=== PATIENT | female | born 1990 | race Caucasian/White ===

== ENCOUNTER 2017-08-08 01:43 | Emergency (ER) | payer BC ==
[2017-08-08] MEDS ORDERED: TORAdol 30 mg Injection IV ONE (01:59)
[2017-08-08] MEDS ORDERED: Sodium Chloride 0.9% 1000 ML 1,000 ML IV STA (01:59)
[2017-08-08] MEDS ORDERED: Zofran 4 MG/2 ML VIAL IV ONE (01:59)
--- NOTE | 2017-08-08 02:06 | ERPHSYRPT ---
- History of Present Illness Time Seen by Provider: 08/08/17 02:01 Historian: patient Exam Limitations: no limitations Physician History: This is a 19-year-old white female with history of bilateral renal micro- calculi which were noted on CT scan May 22, 2017. She arrives with complaint of vomiting, right flank pain radiating to right abdomen. Symptoms since just around midnight. Patient without fever or urinary symptoms no melena or hematochezia. Past medical history includes kidney stones Past surgical history includes colonic polyps Social history patient denies tobacco alcohol or illicit drug use. Timing/Duration: today (symptoms since midnight) Activities at Onset: none Quality: cramping Abdominal Pain Onset Location: RUQ, flank (right flank) Pain Radiation: other (right flank radiating to the right side of the abdomen) Severity of Pain-Max: moderate Severity of Pain-Current: moderate Modifying Factors: Improves With: vomiting. Worsens With: analgesics, antacids , breathing, coughing, defecating, eating, exercise, lying down, movement, palpation, rest, urinating, position, walking Associated Symptoms: back (right flank pain), nausea, vomiting, No chest pain, No diaphoresis, No diarrhea, No fever/chills, No fatigue, No headache, No heartburn, No loss of appetite, No neck pain, No rash, No shortness of breath, No syncope, No weakness Previous symptoms: same symptoms as today (similar symptoms when patient had a CT of the abdomen revealing bilateral micro-calculi on CT May 22, 2017) Allergies/Adverse Reactions: cefuroxime [From Ceftin] Allergy (Verified 08/08/17 04:45) Hives Ephedrine Analogues [Ephedrine Agents] Adverse Reaction (Severe, Verified 04:45) resp distress Hx Influenza Vaccination/Date Given: No Hx Pneumococcal Vaccination/Date Given: No - Review of Systems Constitutional: No Fever, No Chills Eyes: No Symptoms Ears, Nose, & Throat: No Symptoms Respiratory: No Cough, No Dyspnea Cardiac: No Chest Pain, No Edema, No Syncope Abdominal/Gastrointestinal: Abdominal Pain, Nausea, Vomiting, No Diarrhea, No Constipation, No Hematemesis, No Hematochezia, No Melena, No Dysphagia, No Appetite Changes Genitourinary Symptoms: Flank Pain (right flank pain), No Dysuria, No Frequency , No Hematuria, No Hesitancy, No Incontinence, No Urgency, No Urinary Retention , No Menorrhagia, No , No Vaginal Bleeding, No Vaginal Discharge, No Vaginal Itching Musculoskeletal: No Back Pain, No Neck Pain Skin: No Rash Neurological: No Dizziness, No Focal Weakness, No Sensory Changes Psychological: No Symptoms Endocrine: No Symptoms All Other Systems: Reviewed and Negative - Past Medical History Pertinent Past Medical History: Yes Neurological History: No Pertinent History ENT History: No Pertinent History Cardiac History: No Pertinent History Respiratory History: No Pertinent History Endocrine Medical History: No Pertinent History Musculoskeletal History: No Pertinent History GI Medical History: GI Bleed, Polyps History: Other Psycho-Social History: No Pertinent History Female Reproductive Disorders: No Pertinent History Other Medical History: kidney stones - Past Surgical History Past Surgical History: Yes Neuro Surgical History: No Pertinent History Cardiac: No Pertinent History Respiratory: No Pertinent History Gastrointestinal: No Pertinent History Genitourinary: No Pertinent History Musculoskeletal: No Pertinent History Female Surgical History: No Pertinent History Other Surgical History: polyps removed at age 4 - Social History Smoking Status: Former smoker Exposure to second hand smoke: No Drug Use: none - Nursing Vital Signs Nursing Vital Signs: Initial Vital Signs Pulse Rate 79 08/08/17 01:47 Respiratory Rate 24 08/08/17 01:47 Blood Pressure 119/78 08/08/17 01:47 O2 Sat by Pulse Oximetry 100 08/08/17 01:47 Pain Scale Pain Intensity 2 - Physical Exam General Appearance: moderate distress, other (well-developed well-nourished white female , vomiting) Eye Exam: PERRL/EOMI, eyes nml inspection Ears, Nose, Throat Exam: normal ENT inspection, pharynx normal, moist mucous membranes Neck Exam: normal inspection, non-tender, supple, full range of motion Respiratory Exam: normal breath sounds, lungs clear, No respiratory distress Cardiovascular Exam: regular rate/rhythm, normal heart sounds Gastrointestinal/Abdomen Exam: soft, normal bowel sounds, tenderness (Right upper quadrant tenderness), No distention, No mass, No guarding, No ecchymosis, No pulsatile mass, No rebound, No hernia, No hepatomegaly, No organomegaly, No splenomegaly Back Exam: normal range of motion, CVA tenderness (right flank tenderness), No vertebral tenderness, No rash, No decreased range of motion, No muscle spasm, No point tenderness Extremity Exam: normal inspection, normal range of motion, pelvis stable Neurologic Exam: alert, oriented x 3, cooperative, normal mood/affect, nml cerebellar function, sensation nml, No motor deficits Skin Exam: normal color, warm, dry SpO2 Interpretation: normal (98%) - Course Nursing assessment & vital signs reviewed: Yes - CT Exams Abdomen/Pelvis CT Interpretation: Tele-radiologist Report (ct abomen/ pelvis without contrast: Impression: 1. 1. 4mm calculus at the right uretovesicular junction and 6 mm calculus at the right uretopelvic junction causing mild right hydroureteralnephrosis and perinephric stranding. 2. additional bilateral non obstructing renal calculi. trace pelvic ascites,. 4 incidental non-acute findings.) Ordered Tests: Active Orders 24 hr Category Date Time Status IV Insertion STAT Care 08/08/17 01:59 Active ABDOMEN AND PELVIS W/0 CONTRAS [CT] Stat Exams 08/08/17 02:30 Taken AMYLASE Stat Lab 08/08/17 01:55 Completed CBC W DIFF Stat Lab 08/08/17 01:55 Completed CMP Stat Lab 08/08/17 01:55 Completed CULTURE,URINE Stat Lab 08/08/17 01:55 Received HCG QUALITATIVE,SERUM Stat Lab 08/08/17 01:55 Completed LIPASE Stat Lab 08/08/17 01:55 Completed UA W/ MICROSCOPIC Stat Lab 08/08/17 01:55 Completed Medication Summary Discontinued Medications Generic Name Dose Route Start Last Admin Trade Name Freq PRN Reason Stop Dose Admin Ciprofloxacin Confirm 08/08/17 04:35 Cipro 500 Mg Administered 08/08/17 04:36 Dose 500 mg .ROUTE .STK-MED ONE Ciprofloxacin 500 mg 08/08/17 04:46 08/08/17 04:49 Cipro 500 Mg PO 08/08/17 04:47 500 mg STAT ONE Administration Sodium Chloride 1,000 mls @ 999 mls/hr 08/08/17 01:59 08/08/17 02:13 Sodium Chloride 0.9% 1000 Ml IV 08/08/17 02:59 999 mls/hr .Q1H1M STA Administration Sodium Chloride Confirm 08/08/17 02:10 Sodium Chloride 0.9% 1000 Ml Administered 08/08/17 02:11 Dose 1,000 mls @ ud .ROUTE .STK-MED ONE Ketorolac Tromethamine 30 mg 08/08/17 01:59 08/08/17 02:13 Toradol 30 Mg Injection IV 08/08/17 02:00 30 mg STAT ONE Administration Ketorolac Tromethamine Confirm 08/08/17 02:10 Toradol 30 Mg Injection Administered 08/08/17 02:11 Dose 30 mg .ROUTE .STK-MED ONE Morphine Sulfate 4 mg 08/08/17 04:32 08/08/17 04:39 Morphine Sulfate 4 Mg Inj IV 08/08/17 04:33 4 mg STAT ONE Administration Morphine Sulfate Confirm 08/08/17 04:35 Morphine Sulfate 4 Mg Inj Administered 08/08/17 04:36 Dose 4 mg .ROUTE .STK-MED ONE Ondansetron HCl 4 mg 08/08/17 01:59 08/08/17 02:13 Zofran 4 Mg/2 Ml Vial IV 08/08/17 02:00 4 mg STAT ONE Administration Ondansetron HCl Confirm 08/08/17 02:10 Zofran 4 Mg/2 Ml Vial Administered 08/08/17 02:11 Dose 4 mg .ROUTE .STK-MED ONE Potassium Chloride 20 meq 08/08/17 04:57 08/08/17 05:03 Klor Con 10 Meq PO 08/08/17 04:58 20 meq STAT ONE Administration Potassium Chloride Confirm 08/08/17 05:00 Klor Con 10 Meq Administered 08/08/17 05:01 Dose 200 meq PO .STK-MED ONE Promethazine HCl 12.5 mg 08/08/17 04:32 08/08/17 04:39 Phenergan 25 Mg Inj IV 08/08/17 04:33 12.5 mg STAT ONE Administration Promethazine HCl Confirm 08/08/17 04:35 Phenergan 25 Mg Inj Administered 08/08/17 04:36 Dose 25 mg .ROUTE .STK-MED ONE Lab/Rad Data: Laboratory Result Diagrams 08/08/17 01:55 08/08/17 01:55 Laboratory Results 08/08/17 08/08/17 08/08/17 Range/Units 01:55 01:55 01:55 WBC (4.0-10.5) K/mm3 RBC (4.1-5.4) M/mm3 Hgb (12.0-16.0) gm/dl Hct (35-47) % MCV (78-100) fl MCH (26-32) pg MCHC (32-36) g/dl RDW (11.5-14.0) % Plt Count (150-450) K/mm3 MPV (6-9.5) fl Gran % (36.0-66.0) % Lymphocytes % (24.0-44.0) % Monocytes % (0.0-12.0) % Eosinophils % (0.00-5.0) % Basophils % (0.0-0.4) % Basophils # (0-0.4) Sodium 138 (136-145) mEq/L Potassium 3.2 L (3.5-5.1) mEq/L Chloride 101 (98-107) mEq/L Carbon Dioxide 19.5 L (21-32) mEq/L Anion Gap 20.5 H (5-15) MEQ/L BUN 11 (9-20) mg/dL Creatinine 0.94 (0.55-1.30) mg/dl Estimated GFR > 60 ML/MIN Glucose 117 H (70-110) MG/DL Calcium 9.6 (8.5-10.1) mg/dL Total Bilirubin 0.30 (0.2-1.0) mg/dL AST 16 (15-37) U/L ALT 27 (12-78) U/L Alkaline Phosphatase 72 (46-116) U/L Serum Total Protein 8.2 (6.4-8.2) gm/dL Albumin 4.5 (3.4-5.0) g/dL Amylase 64 (25-115) U/L Lipase 122 (73-393) U/L Serum , Qual NEGATIVE (Negative) Ur Collection Type CCMS Urine Color BROWN (YELLOW) Urine Appearance CLOUDY (CLEAR) Urine pH 7.0 (5-6) Ur Specific [place] 1.020 (1.005-1.025) Urine Protein TRACE (Negative) Urine Ketones SMALL (NEGATIVE) Urine Blood 250 (0-5) Cristino/ul Urine Nitrite NEGATIVE (NEGATIVE) Urine Bilirubin NEGATIVE (NEGATIVE) Urine Urobilinogen NORMAL (0-1) mg/dL Ur Leukocyte Esterase 1+ (NEGATIVE) Urine Microscopic RBC >100 (0-2) /HPF Urine Microscopic WBC 10-15 (0-5) /HPF Ur Epithelial Cells RARE (FEW) /HPF Urine Bacteria FEW (NEGATIVE) /HPF Urine Culture Reflexed YES (NO) Urine Glucose NEGATIVE (NEGATIVE) mg/dL Specimen Received 08-08-17 0225 08/08/17 Range/Units 01:55 WBC 10.1 (4.0-10.5) K/mm3 RBC 4.64 (4.1-5.4) M/mm3 Hgb 14.4 (12.0-16.0) gm/dl Hct 40.5 (35-47) % MCV 87.3 (78-100) fl MCH 31.0 (26-32) pg MCHC 35.6 (32-36) g/dl RDW 12.2 (11.5-14.0) % Plt Count 248 (150-450) K/mm3 MPV 9.5 (6-9.5) fl Gran % 75.6 H (36.0-66.0) % Lymphocytes % 19.0 L (24.0-44.0) % Monocytes % 4.7 (0.0-12.0) % Eosinophils % 0.6 (0.00-5.0) % Basophils % 0.1 (0.0-0.4) % Basophils # 0.01 (0-0.4) Sodium (136-145) mEq/L Potassium (3.5-5.1) mEq/L Chloride (98-107) mEq/L Carbon Dioxide (21-32) mEq/L Anion Gap (5-15) MEQ/L BUN (9-20) mg/dL Creatinine (0.55-1.30) mg/dl Estimated GFR ML/MIN Glucose (70-110) MG/DL Calcium (8.5-10.1) mg/dL Total Bilirubin (0.2-1.0) mg/dL AST (15-37) U/L ALT (12-78) U/L Alkaline Phosphatase (46-116) U/L Serum Total Protein (6.4-8.2) gm/dL Albumin (3.4-5.0) g/dL Amylase (25-115) U/L Lipase (73-393) U/L Serum , Qual (Negative) Ur Collection Type Urine Color (YELLOW) Urine Appearance (CLEAR) Urine pH (5-6) Ur Specific [place] (1.005-1.025) Urine Protein (Negative) Urine Ketones (NEGATIVE) Urine Blood (0-5) Cristino/ul Urine Nitrite (NEGATIVE) Urine Bilirubin (NEGATIVE) Urine Urobilinogen (0-1) mg/dL Ur Leukocyte Esterase (NEGATIVE) Urine Microscopic RBC (0-2) /HPF Urine Microscopic WBC (0-5) /HPF Ur Epithelial Cells (FEW) /HPF Urine Bacteria (NEGATIVE) /HPF Urine Culture Reflexed (NO) Urine Glucose (NEGATIVE) mg/dL Specimen Received - Progress Progress: improved Progress Note: 08/08/17 02:06 This is a 27-year-old white female with history of bilateral micro-renal calculi found on CT of the abdomen May 22, 2017. She states that around midnight she began experiencing pain in the right flank radiating to the right abdomen she has had nausea vomiting. She states that she took a home test and states she is not . On arrival patient is vomiting leaning over to the right side. She has tenderness with palpation right upper quadrant right flank. Will give patient IV normal saline IV Toradol IV Zofran and obtain CBC CMP UA. 08/08/17 02:[address] of the abdomen and pelvis dated May 22, 2017 is reviewed. The impression reads bilateral micro-calculi however in reviewing the y the text: patient is noted to have bilateral renal calculi with the largest being 9 mm located in the mid to upper pole of the right kidney. Patient has been given IV normal saline and Toradol as well as Zofran. Will await appropriate laboratory studies. And monitor response to patient's medication. 08/08/17 04:22 Patient is improved after Toradol 30 mg IV normal saline she still has some urgency with urination. CT of the abdomen and pelvis without contrast shows a 4 mm calculus at the right ureteral vesicular junction and 6 mm calculus at the right ureteral pelvic junction causing mild right hydroureteral nephrosis and perinephric stranding there are additional bilateral nonobstructing renal calculi and a trace of pelvic ascites. I had offered to contact [facility] for possible transfer patient stated that she really did not want to be admitted but would rather try to go through the office. She apparently has seen [facility] renal physicians and specifically Dr. Ling in the past. I contacted Dr. yAala through [facility] one call service and discussed the patient's case with him. He felt that the patient would be okay to follow-up in office as long she doesn' t have a fever and was not in severe distress. Will go ahead and place patient on Cipro 250 mg orally twice a day she has [place] at home and does not want anymore Will write for phenergan. She is to drink plenty of fluids strain all her urine contact [facility] renal physicians tomorrow morning specifically Dr. Ling and arrange follow-up. She is to return for acute distress or severe symptoms. 08/08/17 04:36 08/08/17 05:18 Patient is feeling better after recieving 4 mg morphine and 12.5 mg phenergan, wants to go home and follow up with her urologist, Patient given 20 millequivalents of potassium chloride secondary to potassium of 3.2 will discharge. 08/08/17 05:37 - Departure Time of Disposition: 04:24 Departure Disposition: Home Clinical Impression: Right flank pain Urolithiasis Qualifiers: Urinary calculus location: ureter Qualified Code(s): N20.1 - Calculus of ureter Hydronephrosis Qualifiers: Hydronephrosis type: other Qualified Code(s): N13.39 - Other hydronephrosis Abdominal pain Qualifiers: Abdominal location: right upper quadrant Qualified Code(s): R10.11 - Right upper quadrant pain Condition: Fair Critical Care Time: No Referrals: KAELYN JACKSON MD [Primary Care Provider] - Instructions: Kidney Stones (DC) Additional Instructions: Return home. Strain all urine. Cipro 500 mg orally twice a day 7 days #14. Take the [place] you have at home as needed for pain. Phenergan 25 mg orally every 4-6 hours as needed for nausea and vomiting. Contact [facility] renal physicians later this morning and arrange follow-up call this morning. Return for acute distress or for severe symptoms. Prescriptions: Ciprofloxacin [Cipro 500 MG] 500 mg PO BID #14 tablet Promethazine HCl 25 mg [Phenergan 25 mg] 25 mg PO Q4-6HPRN PRN #12 tablet PRN Reason: nausea and vomiting
[2017-08-08] MEDS ORDERED: TORAdol 30 mg Injection ONE (02:10)
[2017-08-08] MEDS ORDERED: Sodium Chloride 0.9% 1000 ML 1,000 ML ONE (02:10)
[2017-08-08] MEDS ORDERED: Zofran 4 MG/2 ML VIAL ONE (02:10)
[2017-08-08 02:12] LABS: BASOPHIL % 0.1 % (0.0-0.4); Basophil (Absolute #) 0.01 (0-0.4); Eosinophil % 0.6 % (0.00-5.0); Eosinophil (Absolute #) 0.06 (0-0.5); Granulocytes % 75.6 % (36.0-66.0); Hematocrit 40.5 % (35-47); Hemoglobin 14.4 gm/dl (12.0-16.0); Lymphocyte (Absolute #) 1.91 (1.0-4.6); Mean Cell Volume 87.3 fl (78-100); Mean Corpuscular Hgb Concent. 35.6 g/dl (32-36); Mean Platelet Volume 9.5 fl (6-9.5); Monocyte (Absolute #) 0.47 (0.0-1.3); Monocytes % 4.7 % (0.0-12.0); Platelet Count 248 K/mm3 (150-450); Red Blood Count 4.64 M/mm3 (4.1-5.4); Red Cell Distribution Width 12.2 % (11.5-14.0); White Blood Count 10.1 K/mm3 (4.0-10.5)
[2017-08-08 02:25] LABS: Appearance CLOUDY (CLEAR); Bilirubin NEGATIVE (NEGATIVE); Blood 250 Ery/ul (0-5); Glucose NEGATIVE (NEGATIVE); Ketones SMALL (NEGATIVE); Leukocyte Esterase 1+ (NEGATIVE); Nitrite NEGATIVE (NEGATIVE); Protein,Urine Dip TRACE (Negative); Urobilinogen NORMAL mg/dL (0-1)
[2017-08-08 02:26] LABS: Bacteria FEW /HPF (NEGATIVE); Epithelial Cells RARE /HPF (FEW)
[2017-08-08 02:33] LABS: ALBUMIN 4.5 g/dL (3.4-5.0); ALKALINE PHOSPHATASE 72 U/L (46-116); AMYLASE 64 U/L (25-115); ANION GAP 20.5 MEQ/L (5-15); BLOOD UREA NITROGEN 11 mg/dL (9-20); CHLORIDE 101 mEq/L (98-107); Calcium 9.6 mg/dL (8.5-10.1); Carbon Dioxide 19.5 mEq/L (21-32); Creatinine 1 0.94 mg/dl (0.55-1.30); EST GLOMERULAR FILTRATION RATE > 60 ML/MIN; Glucose 117 MG/DL (70-110); LIPASE 122 U/L (73-393); Potassium 3.2 mEq/L (3.5-5.1); SGOT/AST 16 U/L (15-37); SGPT/ALT 27 U/L (12-78); SODIUM 138 mEq/L (136-145); Total Protein 8.2 gm/dL (6.4-8.2)
[2017-08-08] MEDS ORDERED: Phenergan 25 MG INJ IV ONE (04:32)
[2017-08-08] MEDS ORDERED: MORPHINE SULFATE 4 MG INJ IV ONE (04:32)
[2017-08-08] MEDS ORDERED: Cipro 500 MG ONE (04:35)
[2017-08-08] MEDS ORDERED: Phenergan 25 MG INJ ONE (04:35)
[2017-08-08] MEDS ORDERED: MORPHINE SULFATE 4 MG INJ ONE (04:35)
[2017-08-08] MEDS ORDERED: Cipro 500 MG PO ONE (04:46)
[2017-08-08] MEDS ORDERED: Klor Con 10 MEQ PO ONE ×2 (04:57→05:00)
[2017-08-08 05:35] VITALS: BP 124/78; PULSE 74; O2SAT 98
--- NOTE | 2017-08-08 09:41 | XRAY ---
Indication: Right flank and right lower quadrant pain. Nausea, vomiting, hematuria, and difficulty urinating. History of stones. Multiple contiguous axial images obtained through the abdomen and pelvis without contrast using renal stone protocol. Comparison: May 22, 2017. Lung bases demonstrate stable right base calcified granuloma. Remaining lung bases clear. Heart is not enlarged. New 9 mm proximal right ureteral and 5 mm distal right UVJ calculi. Right ureter is abnormally distended up to 9 mm along with moderate hydronephrosis consistent with obstructive uropathy. No perinephric fluid. Stable bilateral renal calculi. Noncontrasted stomach and bowel loops appear nonobstructed. Normal appendix. No free fluid/air. Remaining liver, gallbladder, pancreas, spleen, adrenal glands, bladder, uterus, and aorta appear unremarkable for noncontrast exam. Osseous structures intact. Impression: 1. Proximal right ureteral and distal UVJ calculi producing obstructive uropathy as detailed. Stable bilateral renal calculi. 2. Remaining CT abdomen/pelvis without contrast exam is negative. Comment: Preliminary interpretation was made by [facility]. No critical discrepancy. CTDI 18.70
== END 2017-08-08 05:35 | disposition home or self-care (01) ==
LOC: ED 01:43
DX: N20.1 Calculus of ureter (principal); N13.39 Other hydronephrosis
CPT/HCPCS: 36000; 36415; 74176; 80053; 81000; 82150; 83690; 84703; 85025; 87086; 96360; 96374; 96375; 99284; J1885; J2270; J2405; J2550; A9270-GY

== ENCOUNTER 2019-09-22 03:22 | Emergency (ER) | payer BC ==
[2019-09-22 03:29] VITALS: O2SAT 100
[2019-09-22] MEDS ORDERED: Zofran 4 MG/2 ML VIAL IV ONE ×2 (03:46→05:18)
[2019-09-22] MEDS ORDERED: MORPHINE SULFATE 4 MG INJ IV ONE ×2 (03:46→05:38)
[2019-09-22] MEDS ORDERED: Sodium Chloride 0.9% 1000 ML 1,000 ML IV STA ×2 (03:46→05:29)
--- NOTE | 2019-09-22 03:52 | ERPHSYRPT ---
- History of Present Illness Time Seen by Provider: 09/22/19 03:40 Historian: patient Exam Limitations: no limitations Patient Subjective Stated Complaint: pt c/o abd pain radiating to back since 1400 on 09/21/19 Triage Nursing Assessment: pt c/o lower left abd pain, tender on palpation, radiating to lower back area. Hypoactive bs x4 quad. LBM 09/21/19, has nausea , vomiting. Physician History: 29 years old female with history of kidney stones presented in the ER with chief complaint of left flank/left lower quadrant pain since yesterday afternoon moderate to severe, continuous, aggravated with movement and palpation , associated with multiple episodes of nonprojectile, nonbilious vomiting with no hematemesis. She is also complaining of some burning urination. Patient was evaluated by telehealth and was given Cipro but she could not hold anything down because of vomiting. Denies fever or chills. Patient reports similar symptoms multiple times in the past with kidney stones. Timing/Duration: yesterday Activities at Onset: rest Quality: sharpness, stabbing Abdominal Pain Onset Location: LLQ, flank Pain Radiation: no radiation Severity of Pain-Max: severe Severity of Pain-Current: severe Modifying Factors: Improves With: movement, palpation Associated Symptoms: nausea, vomiting Previous symptoms: same symptoms as today Allergies/Adverse Reactions: cefuroxime [From Ceftin] Allergy (Verified 09/22/19 03:37) Hives Ephedrine Analogues [Ephedrine Agents] Adverse Reaction (Severe, Verified 03:37) resp distress Home Medications: Ciprofloxacin [Cipro 500 MG] 500 mg PO BID 09/22/19 [History] ondansetron HCL [Ondansetron HCl] 4 mg PO TID PRN 09/22/19 [History] Hx Tetanus, Diphtheria Vaccination/Date Given: Yes Hx Influenza Vaccination/Date Given: No Hx Pneumococcal Vaccination/Date Given: No Immunizations Up to Date: Yes - Review of Systems Constitutional: No Symptoms Eyes: No Symptoms Ears, Nose, & Throat: No Symptoms Respiratory: No Symptoms Cardiac: No Symptoms Abdominal/Gastrointestinal: Abdominal Pain, Nausea, Vomiting Genitourinary Symptoms: No Symptoms Musculoskeletal: No Symptoms Skin: No Symptoms Neurological: No Symptoms Psychological: No Symptoms Hematologic/Lymphatic: No Symptoms Immunological/Allergic: No Symptoms - Past Medical History Pertinent Past Medical History: Yes Neurological History: No Pertinent History ENT History: No Pertinent History Cardiac History: No Pertinent History Respiratory History: No Pertinent History Endocrine Medical History: No Pertinent History Musculoskeletal History: No Pertinent History GI Medical History: GI Bleed, Polyps History: Other Psycho-Social History: No Pertinent History Female Reproductive Disorders: No Pertinent History Other Medical History: kidney stones, uti - Past Surgical History Past Surgical History: Yes Neuro Surgical History: No Pertinent History Cardiac: No Pertinent History Respiratory: No Pertinent History Gastrointestinal: No Pertinent History Genitourinary: Other Musculoskeletal: No Pertinent History Female Surgical History: No Pertinent History Other Surgical History: polyps removed at age 4, kidney stone removal - Social History Smoking Status: Former smoker Exposure to second hand smoke: Yes Drug Use: none Patient Lives Alone: No - Female History Hx Last Menstrual Period: 08/22/19 Hx Now: No - Nursing Vital Signs Nursing Vital Signs: Initial Vital Signs Temperature 97.9 F 09/22/19 03:28 Pulse Rate 83 09/22/19 03:28 Respiratory Rate 20 09/22/19 03:28 Blood Pressure 110/78 09/22/19 03:28 O2 Sat by Pulse Oximetry 100 09/22/19 03:28 Pain Scale Pain Intensity 7 - Physical Exam General Appearance: no apparent distress Eye Exam: PERRL/EOMI, eyes nml inspection Ears, Nose, Throat Exam: normal ENT inspection Neck Exam: normal inspection Respiratory Exam: normal breath sounds, lungs clear Cardiovascular Exam: regular rate/rhythm, normal heart sounds, normal peripheral pulses Gastrointestinal/Abdomen Exam: soft, tenderness (Left flank/left lower quadrant. ), guarding, No rebound Back Exam: normal inspection Extremity Exam: normal inspection, normal range of motion Neurologic Exam: alert, oriented x 3, cooperative, cardiac nurse specialist II-XII nml as tested Skin Exam: normal color SpO2 Interpretation: normal SpO2: 100 O2 Delivery: Room Air - Course Nursing assessment & vital signs reviewed: Yes Ordered Tests: Active Orders 24 hr Category Date Time Status IV Insertion STAT Care 09/22/19 03:46 Active ABDOMEN AND PELVIS W/0 CONTRAS [CT] Stat Exams 09/22/19 03:47 Taken CBC W DIFF Stat Lab 09/22/19 03:46 Completed CMP Stat Lab 09/22/19 03:46 Completed CULTURE,URINE Stat Lab 09/22/19 04:19 Received HCG,QUALITATIVE URINE Stat Lab 09/22/19 03:48 Completed LIPASE Stat Lab 09/22/19 03:46 Completed UA W/RFX UR CULTURE Stat Lab 09/22/19 04:19 Completed Medication Summary Generic Name Dose Route Start Last Admin Trade Name Trav PRN Reason Stop Dose Admin Sodium Chloride 1,000 mls @ 999 mls/hr 09/22/19 05:29 09/22/19 05:30 Sodium Chloride 0.9% 1000 Ml IV 09/22/19 06:29 999 mls/hr .Q1H1M STA Administration Levofloxacin/Dextrose 750 mg in 150 mls @ 100 mls/hr 09/22/19 05:39 09/22/19 05:59 Levofloxacin 750mg/150ml D5w IV 09/22/19 07:08 100 mls/hr STAT ONE Administration Discontinued Medications Generic Name Dose Route Start Last Admin Trade Name Trav PRN Reason Stop Dose Admin Sodium Chloride 1,000 mls @ 999 mls/hr 09/22/19 03:46 09/22/19 04:07 Sodium Chloride 0.9% 1000 Ml IV 09/22/19 04:46 999 mls/hr .Q1H1M STA Administration Sodium Chloride Confirm 09/22/19 04:03 Sodium Chloride 0.9% 1000 Ml Administered 09/22/19 04:04 Dose 1,000 mls @ ud .ROUTE .STK-MED ONE Sodium Chloride Confirm 09/22/19 05:29 Sodium Chloride 0.9% 1000 Ml Administered 09/22/19 05:30 Dose 1,000 mls @ ud .ROUTE .STK-MED ONE Levofloxacin/Dextrose Confirm 09/22/19 05:57 Levofloxacin 750mg/150ml D5w Administered 09/22/19 05:58 Dose 750 mg in 150 mls @ ud IV .STK-MED ONE Ketorolac Tromethamine 30 mg 09/22/19 05:16 09/22/19 05:21 Toradol 30 Mg Injection IV 09/22/19 05:17 30 mg STAT ONE Administration Ketorolac Tromethamine Confirm 09/22/19 05:14 Toradol 30 Mg Injection Administered 09/22/19 05:15 Dose 30 mg .ROUTE .STK-MED ONE Morphine Sulfate 4 mg 09/22/19 03:46 09/22/19 04:07 Morphine Sulfate 4 Mg Inj IV 09/22/19 03:47 4 mg STAT ONE Administration Morphine Sulfate Confirm 09/22/19 04:03 Morphine Sulfate 4 Mg Inj Administered 09/22/19 04:04 Dose 4 mg .ROUTE .STK-MED ONE Morphine Sulfate Confirm 09/22/19 05:14 Morphine Sulfate 4 Mg Inj Administered 09/22/19 05:15 Dose 4 mg .ROUTE .STK-MED ONE Morphine Sulfate 4 mg 09/22/19 05:38 Morphine Sulfate 4 Mg Inj IV 09/22/19 05:39 STAT ONE Ondansetron HCl 4 mg 09/22/19 03:46 09/22/19 04:07 Zofran 4 Mg/2 Ml Vial IV 09/22/19 03:47 4 mg STAT ONE Administration Ondansetron HCl Confirm 09/22/19 04:03 Zofran 4 Mg/2 Ml Vial Administered 09/22/19 04:04 Dose 4 mg .ROUTE .STK-MED ONE Ondansetron HCl 4 mg 09/22/19 05:18 09/22/19 05:21 Zofran 4 Mg/2 Ml Vial IV 09/22/19 05:19 4 mg STAT ONE Administration Ondansetron HCl Confirm 09/22/19 05:18 Zofran 4 Mg/2 Ml Vial Administered 09/22/19 05:19 Dose 4 mg .ROUTE .STK-MED ONE Lab/Rad Data: Laboratory Result Diagrams 09/22/19 03:46 09/22/19 03:46 Laboratory Results 09/22/19 09/22/19 09/22/19 Range/Units 04:19 03:48 03:46 WBC (4.0-10.5) K/mm3 RBC (4.1-5.4) M/mm3 Hgb (12.0-16.0) gm/dl Hct (35-47) % MCV (78-100) fl MCH (26-32) pg MCHC (32-36) g/dl RDW (11.5-14.0) % Plt Count (150-450) K/mm3 MPV (7.5-11.0) fl Gran % (36.0-66.0) % Eos # (Auto) (0-0.5) Absolute Lymphs (auto) (1.0-4.6) Absolute Monos (auto) (0.0-1.3) Lymphocytes % (24.0-44.0) % Monocytes % (0.0-12.0) % Eosinophils % (0.00-5.0) % Basophils % (0.0-0.4) % Absolute Granulocytes (1.4-6.9) Basophils # (0-0.4) Sodium 138 (137-145) mmol/L Potassium 3.5 (3.5-5.1) mmol/L Chloride 107 (98-107) mmol/L Carbon Dioxide 23 (22-30) mmol/L Anion Gap 11.8 (5-15) MEQ/L BUN 10 (7-17) mg/dL Creatinine 0.78 (0.52-1.04) mg/dL Estimated GFR > 60.0 ML/MIN Glucose 121 H (74-106) mg/dL Calcium 9.5 (8.4-10.2) mg/dL Total Bilirubin 0.80 (0.2-1.3) mg/dL AST 21 (14-36) U/L ALT 14 (0-35) U/L Alkaline Phosphatase 80 (38-126) U/L Serum Total Protein 8.0 (6.3-8.2) g/dL Albumin 4.6 (3.5-5.0) g/dL Lipase 63 (23-300) U/L Urine Color SHITAL (YELLOW) Urine Appearance CLOUDY (CLEAR) Urine pH 6.0 (5-6) Ur Specific [place] 1.033 (1.005-1.025) Urine Protein 100 (Negative) Urine Ketones SMALL (NEGATIVE) Urine Blood LARGE (0-5) Cristino/ul Urine Nitrite NEGATIVE (NEGATIVE) Urine Bilirubin NEGATIVE (NEGATIVE) Urine Urobilinogen NEGATIVE (0-1) mg/dL Ur Leukocyte Esterase TRACE (NEGATIVE) Urine WBC (Auto) 3-5 (0-5) /HPF Urine RBC (Auto) >101 (0-2) /HPF U Epithel Cells (Auto) RARE (FEW) /HPF Urine Bacteria (Auto) RARE (NEGATIVE) /HPF Urine Mucus (Auto) MANY (NEGATIVE) /HPF Urine Culture Reflexed YES (NO) Urine Glucose NEGATIVE (NEGATIVE) mg/dL Urine HCG, Qual NEGATIVE (Negative) 09/22/19 Range/Units 03:46 WBC 10.9 H (4.0-10.5) K/mm3 RBC 4.35 (4.1-5.4) M/mm3 Hgb 13.6 (12.0-16.0) gm/dl Hct 38.9 (35-47) % MCV 89.4 (78-100) fl MCH 31.3 (26-32) pg MCHC 35.0 (32-36) g/dl RDW 11.9 (11.5-14.0) % Plt Count 236 (150-450) K/mm3 MPV 9.7 (7.5-11.0) fl Gran % 84.3 H (36.0-66.0) % Eos # (Auto) 0.02 (0-0.5) Absolute Lymphs (auto) 1.18 (1.0-4.6) Absolute Monos (auto) 0.50 (0.0-1.3) Lymphocytes % 10.8 L (24.0-44.0) % Monocytes % 4.6 (0.0-12.0) % Eosinophils % 0.2 (0.00-5.0) % Basophils % 0.1 (0.0-0.4) % Absolute Granulocytes 9.21 H (1.4-6.9) Basophils # 0.01 (0-0.4) Sodium (137-145) mmol/L Potassium (3.5-5.1) mmol/L Chloride (98-107) mmol/L Carbon Dioxide (22-30) mmol/L Anion Gap (5-15) MEQ/L BUN (7-17) mg/dL Creatinine (0.52-1.04) mg/dL Estimated GFR ML/MIN Glucose (74-106) mg/dL Calcium (8.4-10.2) mg/dL Total Bilirubin (0.2-1.3) mg/dL AST (14-36) U/L ALT (0-35) U/L Alkaline Phosphatase (38-126) U/L Serum Total Protein (6.3-8.2) g/dL Albumin (3.5-5.0) g/dL Lipase (23-300) U/L Urine Color (YELLOW) Urine Appearance (CLEAR) Urine pH (5-6) Ur Specific [place] (1.005-1.025) Urine Protein (Negative) Urine Ketones (NEGATIVE) Urine Blood (0-5) Cristino/ul Urine Nitrite (NEGATIVE) Urine Bilirubin (NEGATIVE) Urine Urobilinogen (0-1) mg/dL Ur Leukocyte Esterase (NEGATIVE) Urine WBC (Auto) (0-5) /HPF Urine RBC (Auto) (0-2) /HPF U Epithel Cells (Auto) (FEW) /HPF Urine Bacteria (Auto) (NEGATIVE) /HPF Urine Mucus (Auto) (NEGATIVE) /HPF Urine Culture Reflexed (NO) Urine Glucose (NEGATIVE) mg/dL Urine HCG, Qual (Negative) - Progress Progress: improved, pain not gone completely, re-examined Progress Note: 09/22/19 05:49 29 years old is evaluated for left flank pain. She is given IV fluid and pain medications. She has mildly elevated white count with normal renal functions. I have obtained Noncon CT abdomen pelvis which showed obstructing left upper ureteral 9 mm calculus with moderate to severe left hydroureter and hydronephrosis. I have given a dose of antibiotic as well. On reevaluation patient is feeling little better but still have pain. She is given multiple doses of pain medication while in here. I believe patient needs urology evaluation and her primary urologist Dr. Ling is at [place]. Discussed with Dr. Blankenship at [place] and patient is accepted for transfer. Plan discussed with patient understand and agrees with it. Counseled pt/family regarding: lab results, diagnosis, rad results - Departure Departure Disposition: Transfer Clinical Impression: Obstructive uropathy, Urolithiasis Condition: Stable Critical Care Time: No Referrals: KAELYN JACKSON MD [Primary Care Provider] -
[2019-09-22] MEDS ORDERED: Sodium Chloride 0.9% 1000 ML 1,000 ML ONE ×2 (04:03→05:29)
[2019-09-22] MEDS ORDERED: MORPHINE SULFATE 4 MG INJ ONE ×2 (04:03→05:14)
[2019-09-22] MEDS ORDERED: Zofran 4 MG/2 ML VIAL ONE ×2 (04:03→05:18)
[2019-09-22 04:21] LABS: ALBUMIN 4.6 g/dL (3.5-5.0); ALKALINE PHOSPHATASE 80 U/L (38-126); ANION GAP 11.8 MEQ/L (5-15); BLOOD UREA NITROGEN 10 mg/dL (7-17); CHLORIDE 107 mmol/L (98-107); Calcium 9.5 mg/dL (8.4-10.2); Carbon Dioxide 23 mmol/L (22-30); Creatinine 1 0.78 mg/dL (0.52-1.04); Glucose 121 mg/dL (74-106); LIPASE 63 U/L (23-300); Potassium 3.5 mmol/L (3.5-5.1); SGOT/AST 21 U/L (14-36); SGPT/ALT 14 U/L (0-35); SODIUM 138 mmol/L (137-145)
[2019-09-22 04:25] LABS: Absolute Neutrophil Ct (ANC) 9.21 (1.4-6.9); BASOPHIL % 0.1 % (0.0-0.4); Basophil (Absolute #) 0.01 (0-0.4); Eosinophil % 0.2 % (0.00-5.0); Eosinophil (Absolute #) 0.02 (0-0.5); Hematocrit 38.9 % (35-47); Hemoglobin 13.6 gm/dl (12.0-16.0); Lymphocyte (Absolute #) 1.18 (1.0-4.6); Lymphocytes % 10.8 % (24.0-44.0); Mean Cell Volume 89.4 fl (78-100); Mean Corpuscular Hemoglobin 31.3 pg (26-32); Mean Platelet Volume 9.7 fl (7.5-11.0); Monocytes % 4.6 % (0.0-12.0); Neutrophil % 84.3 % (36.0-66.0); Platelet Count 236 K/mm3 (150-450); Red Blood Count 4.35 M/mm3 (4.1-5.4); Red Cell Distribution Width 11.9 % (11.5-14.0); White Blood Count 10.9 K/mm3 (4.0-10.5)
[2019-09-22 04:28] LABS: Appearance CLOUDY (CLEAR); Bacteria RARE /HPF (NEGATIVE); Bilirubin NEGATIVE (NEGATIVE); Blood LARGE Ery/ul (0-5); Epithelial Cells RARE /HPF (FEW); Glucose NEGATIVE (NEGATIVE); Ketones SMALL (NEGATIVE); Leukocyte Esterase TRACE (NEGATIVE); Mucus MANY /HPF (NEGATIVE); Nitrite NEGATIVE (NEGATIVE); Protein,Urine Dip 100 (Negative); RBC >101 /HPF (0-2); Specific Gravity 1.033 (1.005-1.025); Urobilinogen NEGATIVE mg/dL (0-1)
[2019-09-22] MEDS ORDERED: TORAdol 30 mg Injection ONE (05:14)
[2019-09-22] MEDS ORDERED: TORAdol 30 mg Injection IV ONE (05:16)
[2019-09-22] MEDS ORDERED: LEVOFLOXACIN 750MG/150ML D5W 750 MG/150 ML BAG IV ONE ×2 (05:39→05:57)
[2019-09-22 07:33] VITALS: BP 108/69; PULSE 86
--- NOTE | 2019-09-22 08:14 | XRAY ---
Indication: Left lower quadrant pain. Nausea, vomiting, and dysuria. History renal calculus. Multiple contiguous axial images obtained through the abdomen and pelvis without contrast as ordered. Comparison: August 08, 2017. Lung bases remain clear again with incidental right lower lobe calcified granuloma. Heart is not enlarged. Noncontrasted stomach and bowel loops appear nonobstructed. New 9 mm proximal left ureter calculus, approximately L4 level. There is subsequent moderate left sided hydronephrosis, renal edema, and minimal perinephric stranding. No perinephric fluid. There are again multiple bilateral renal micro-calculi. Remaining liver, gallbladder, pancreas, spleen, adrenal glands, bladder, uterus, and aorta appear unremarkable for noncontrast exam. Osseous structures intact. Impression: 1. New 9 mm proximal left ureter calculus producing high-grade obstruction as detailed. Again additional bilateral renal micro-calculi. 2. Remaining CT abdomen/pelvis without contrast exam is negative. Comment: Preliminary interpretation was made by [facility]. No critical discrepancy.
== END 2019-09-22 07:02 | disposition short-term general hospital (02) ==
LOC: ED 03:22
DX: N13.9 Obstructive and reflux uropathy, unspecified (principal); N20.9 Urinary calculus, unspecified; R10.9 Unspecified abdominal pain; R10.32 Left lower quadrant pain; R11.2 Nausea with vomiting, unspecified; Z79.899 Other long term (current) drug therapy
CPT/HCPCS: 36000; 36415; 74176; 80053; 81001; 83690; 84703; 85025; 87086; 96360; 96361; 96365; 96374; 96375; 96376; 99285; J1885; J1956; J2270; J2405

== ENCOUNTER 2021-06-14 16:23 | Emergency (ER) | payer BC ==
[2021-06-14 17:13] VITALS: O2SAT 99
[2021-06-14] MEDS ORDERED: Sodium Chloride 0.9% 1000 ML 1,000 ML IV STA (17:20)
[2021-06-14 17:41] LABS: Absolute Neutrophil Ct (ANC) 7.17 (1.4-6.9); BASOPHIL % 0.1 % (0.0-0.4); Basophil (Absolute #) 0.01 (0-0.4); Eosinophil % 0.3 % (0.00-5.0); Eosinophil (Absolute #) 0.03 (0-0.5); Hematocrit 41.5 % (35-47); Lymphocyte (Absolute #) 1.74 (1.0-4.6); Lymphocytes % 18.6 % (24.0-44.0); Mean Cell Volume 90.2 fl (78-100); Mean Corpuscular Hemoglobin 30.4 pg (26-32); Mean Corpuscular Hgb Concent. 33.7 g/dl (32-36); Mean Platelet Volume 9.7 fl (7.5-11.0); Monocyte (Absolute #) 0.42 (0.0-1.3); Monocytes % 4.5 % (0.0-12.0); Neutrophil % 76.5 % (36.0-66.0); Platelet Count 277 K/mm3 (150-450); Red Cell Distribution Width 12.4 % (11.5-14.0); White Blood Count 9.4 K/mm3 (4.0-10.5)
[2021-06-14] MEDS ORDERED: Sodium Chloride 0.9% 1000 ML 1,000 ML ONE (17:42)
[2021-06-14 17:53] LABS: ALKALINE PHOSPHATASE 88 U/L (38-126); ANION GAP 12.3 MEQ/L (5-15); BLOOD UREA NITROGEN 7 mg/dL (7-17); CHLORIDE 100 mmol/L (98-107); Calcium 9.5 mg/dL (8.4-10.2); Carbon Dioxide 29 mmol/L (22-30); Creatinine 1 0.63 mg/dL (0.52-1.04); EST GLOMERULAR FILTRATION RATE > 60.0 ML/MIN; Glucose 86 mg/dL (74-106); LIPASE 43 U/L (23-300); Potassium 3.6 mmol/L (3.5-5.1); SGOT/AST 28 U/L (14-36); SGPT/ALT 18 U/L (0-35); SODIUM 138 mmol/L (137-145); Total Protein 8.4 g/dL (6.3-8.2)
[2021-06-14 17:55] LABS: Appearance SLIGHTLY CLOUDY (CLEAR); Bacteria RARE /HPF (NEGATIVE); Bilirubin NEGATIVE (NEGATIVE); Blood NEGATIVE Ery/ul (0-5); Epithelial Cells RARE /HPF (FEW); Glucose NEGATIVE (NEGATIVE); Ketones NEGATIVE (NEGATIVE); Leukocyte Esterase NEGATIVE (NEGATIVE); Mucus SLIGHT /HPF (NEGATIVE); Nitrite NEGATIVE (NEGATIVE); Protein,Urine Dip NEGATIVE (Negative); Urobilinogen NEGATIVE mg/dL (0-1); WBC 0-2 /HPF (0-5)
--- NOTE | 2021-06-14 18:44 | ERPHSYRPT ---
- History of Present Illness Time Seen by Provider: 06/14/21 16:40 Historian: patient Exam Limitations: no limitations Patient Subjective Stated Complaint: RLQ pain Triage Nursing Assessment: Patient ambulated back to ED and transferred self to bed. Patient A+O x3. Patient's skin pink, warm and dry .Patient states around noon she started having intermittent pain to RLQ sharp stabbing pain 7/10. Rebound tenderness noted to RLQ. Patient also complains of N/V and diarrhea. Physician History: Patient is a 31-year-old female presents to our ED for evaluation of abdominal pain. Patient states the abdominal pain started today. Abdominal pain is localized to the right lower quadrant. Pain rated 7 out of 10. No associated fever. Patient admits to nausea vomiting and diarrhea. No trauma. No dysuria or hematuria. No history of the same. Symptoms are moderate in intensity. Palpation reproduces symptoms. Patient otherwise healthy. Patient declined pain medication. Patient voices no other complaints concerns at this time. Timing/Duration: today Activities at Onset: none Quality: aching Abdominal Pain Onset Location: RLQ Pain Radiation: no radiation Severity of Pain-Max: moderate Severity of Pain-Current: mild Modifying Factors: Improves With: palpation Associated Symptoms: diarrhea, nausea, vomiting Allergies/Adverse Reactions: cefuroxime [From Ceftin] Allergy (Verified 06/14/21 16:31) Hives Ephedrine Analogues [Ephedrine Agents] Adverse Reaction (Severe, Verified 06/14/21 16:31) resp distress Home Medications: No Reportable Medications [No Reported Medications] 06/14/21 [History] Hx Tetanus, Diphtheria Vaccination/Date Given: Yes Hx Influenza Vaccination/Date Given: Yes Hx Pneumococcal Vaccination/Date Given: No Immunizations Up to Date: Yes Travel Risk - International Travel Have you traveled outside of the country in past 3 weeks: No - Coronavirus Screening Are you exhibiting any of the following symptoms?: No Close contact with a COVID-19 positive Pt in past 14-21 Days: Yes - Vaccine Status Have you recieved a Covid-19 vaccination: Yes Coater Brake Linings: Moderna - Vaccination Dates Date of 2cond Vaccination (if applicable): 12/24/2020 - Review of Systems Constitutional: No Symptoms, No Fever, No Chills Eyes: No Symptoms Ears, Nose, & Throat: No Symptoms Respiratory: No Symptoms, No Cough, No Dyspnea Cardiac: No Symptoms, No Chest Pain, No Edema, No Syncope Abdominal/Gastrointestinal: No Symptoms, No Abdominal Pain, No Nausea, No Vomiting, No Diarrhea Genitourinary Symptoms: No Symptoms, No Dysuria Musculoskeletal: No Symptoms, No Back Pain, No Neck Pain Skin: No Symptoms, No Rash Neurological: No Symptoms, No Dizziness, No Focal Weakness, No Sensory Changes Psychological: No Symptoms Endocrine: No Symptoms Hematologic/Lymphatic: No Symptoms Immunological/Allergic: No Symptoms All Other Systems: Reviewed and Negative - Past Medical History Pertinent Past Medical History: Yes Neurological History: No Pertinent History ENT History: No Pertinent History Cardiac History: No Pertinent History Respiratory History: No Pertinent History Endocrine Medical History: No Pertinent History Musculoskeletal History: No Pertinent History GI Medical History: GI Bleed, Polyps History: Other Psycho-Social History: No Pertinent History Female Reproductive Disorders: No Pertinent History Other Medical History: kidney stones, uti - Past Surgical History Past Surgical History: Yes Neuro Surgical History: No Pertinent History Cardiac: No Pertinent History Respiratory: No Pertinent History Gastrointestinal: No Pertinent History Genitourinary: Other Musculoskeletal: No Pertinent History Female Surgical History: No Pertinent History Other Surgical History: polyps removed at age 4, kidney stone removal - Social History Smoking Status: Former smoker Exposure to second hand smoke: No Drug Use: none Patient Lives Alone: No - Female History Hx Last Menstrual Period: two weeks ago Hx Now: No - Nursing Vital Signs Nursing Vital Signs: Initial Vital Signs Temperature 97.8 F 06/14/21 16:31 Pulse Rate 87 06/14/21 16:31 Respiratory Rate 18 06/14/21 16:31 Blood Pressure 114/77 06/14/21 16:31 O2 Sat by Pulse Oximetry 99 06/14/21 16:31 Pain Scale Pain Intensity 5 - Physical Exam General Appearance: no apparent distress, alert Eye Exam: PERRL/EOMI, eyes nml inspection Ears, Nose, Throat Exam: normal ENT inspection, pharynx normal, moist mucous membranes Neck Exam: normal inspection, non-tender, supple, full range of motion Respiratory Exam: normal breath sounds, lungs clear, No respiratory distress Cardiovascular Exam: regular rate/rhythm, normal heart sounds Gastrointestinal/Abdomen Exam: soft, tenderness, other (Tenderness to palpation right lower quadrant. Overlying soft tissue intact), No mass Back Exam: normal inspection, normal range of motion, No CVA tenderness, No vertebral tenderness Extremity Exam: normal inspection, normal range of motion, pelvis stable Neurologic Exam: alert, oriented x 3, cooperative, sensation nml, No motor deficits, No sensory deficit Skin Exam: normal color, warm, dry Lymphatic Exam: No adenopathy SpO2 Interpretation: normal SpO2: 99 O2 Delivery: Room Air - Course Nursing assessment & vital signs reviewed: Yes - CT Exams Abdomen/Pelvis CT Interpretation: Tele-radiologist Report (Compared to 09/21/2022 nonobstructing left renal punctate calculi. Also 8 mm splenic cyst. Remaining abdomen pelvis negative.) Ordered Tests: Active Orders 24 hr Category Date Time Status IV Insertion STAT Care 06/14/21 17:20 Active ABDOMEN AND PELVIS W CONTRAST [CT] Stat Exams 06/14/21 17:22 Taken CBC W DIFF Stat Lab 06/14/21 17:29 Completed CMP Stat Lab 06/14/21 17:29 Completed HCG,QUALITATIVE URINE Stat Lab 06/14/21 17:33 Completed LIPASE Stat Lab 06/14/21 17:29 Completed TROPONIN Q3H Lab 06/14/21 17:29 Completed TROPONIN Q3H Lab 06/14/21 20:30 Ordered TROPONIN Q3H Lab 06/14/21 23:30 Ordered TROPONIN Q3H Lab 06/15/21 02:30 Ordered TROPONIN Q3H Lab 06/15/21 05:30 Ordered UA W/RFX UR CULTURE Stat Lab 06/14/21 17:32 Completed Medication Summary Discontinued Medications Generic Name Dose Route Start Last Admin Trade Name Freq PRN Reason Stop Dose Admin Sodium Chloride 1,000 mls @ 999 mls/hr 06/14/21 17:20 06/14/21 18:53 Sodium Chloride 0.9% 1000 Ml IV 06/14/21 18:20 Infused .Q1H1M STA Infusion Sodium Chloride Confirm 06/14/21 17:42 Sodium Chloride 0.9% 1000 Ml Administered 06/14/21 17:43 Dose 1,000 mls @ ud .ROUTE .[facility] Lab/Rad Data: Laboratory Result Diagrams 06/14/21 17:29 06/14/21 17:29 Laboratory Results 06/14/21 06/14/21 06/14/21 Range/Units 17:33 17:32 17:29 WBC (4.0-10.5) K/mm3 RBC (4.1-5.4) M/mm3 Hgb (12.0-16.0) gm/dl Hct (35-47) % MCV (78-100) fl MCH (26-32) pg MCHC (32-36) g/dl RDW (11.5-14.0) % Plt Count (150-450) K/mm3 MPV (7.5-11.0) fl Gran % (36.0-66.0) % Eos # (Auto) (0-0.5) Absolute Lymphs (auto) (1.0-4.6) Absolute Monos (auto) (0.0-1.3) Lymphocytes % (24.0-44.0) % Monocytes % (0.0-12.0) % Eosinophils % (0.00-5.0) % Basophils % (0.0-0.4) % Absolute Granulocytes (1.4-6.9) Basophils # (0-0.4) Sodium (137-145) mmol/L Potassium (3.5-5.1) mmol/L Chloride (98-107) mmol/L Carbon Dioxide (22-30) mmol/L Anion Gap (5-15) MEQ/L BUN (7-17) mg/dL Creatinine (0.52-1.04) mg/dL Estimated GFR ML/MIN Glucose (74-106) mg/dL Calcium (8.4-10.2) mg/dL Total Bilirubin (0.2-1.3) mg/dL AST (14-36) U/L ALT (0-35) U/L Alkaline Phosphatase (38-126) U/L Troponin I < 0.012 (0.000-0.034) ng/mL Serum Total Protein (6.3-8.2) g/dL Albumin (3.5-5.0) g/dL Lipase (23-300) U/L Urine Color YELLOW (YELLOW) Urine Appearance SLIGHTLY CLOUDY (CLEAR) Urine pH 5.0 (5-6) Ur Specific [place] 1.010 (1.005-1.025) Urine Protein NEGATIVE (Negative) Urine Ketones NEGATIVE (NEGATIVE) Urine Blood NEGATIVE (0-5) Cristino/ul Urine Nitrite NEGATIVE (NEGATIVE) Urine Bilirubin NEGATIVE (NEGATIVE) Urine Urobilinogen NEGATIVE (0-1) mg/dL Ur Leukocyte Esterase NEGATIVE (NEGATIVE) Urine WBC (Auto) 0-2 (0-5) /HPF U Epithel Cells (Auto) RARE (FEW) /HPF Urine Bacteria (Auto) RARE (NEGATIVE) /HPF Urine Mucus (Auto) SLIGHT (NEGATIVE) /HPF Urine Culture Reflexed NO (NO) Urine Glucose NEGATIVE (NEGATIVE) mg/dL Urine HCG, Qual NEGATIVE (Negative) 06/14/21 06/14/21 Range/Units 17:29 17:29 WBC 9.4 (4.0-10.5) K/mm3 RBC 4.60 (4.1-5.4) M/mm3 Hgb 14.0 (12.0-16.0) gm/dl Hct 41.5 (35-47) % MCV 90.2 (78-100) fl MCH 30.4 (26-32) pg MCHC 33.7 (32-36) g/dl RDW 12.4 (11.5-14.0) % Plt Count 277 (150-450) K/mm3 MPV 9.7 (7.5-11.0) fl Gran % 76.5 H (36.0-66.0) % Eos # (Auto) 0.03 (0-0.5) Absolute Lymphs (auto) 1.74 (1.0-4.6) Absolute Monos (auto) 0.42 (0.0-1.3) Lymphocytes % 18.6 L (24.0-44.0) % Monocytes % 4.5 (0.0-12.0) % Eosinophils % 0.3 (0.00-5.0) % Basophils % 0.1 (0.0-0.4) % Absolute Granulocytes 7.17 H (1.4-6.9) Basophils # 0.01 (0-0.4) Sodium 138 (137-145) mmol/L Potassium 3.6 (3.5-5.1) mmol/L Chloride 100 (98-107) mmol/L Carbon Dioxide 29 (22-30) mmol/L Anion Gap 12.3 (5-15) MEQ/L BUN 7 (7-17) mg/dL Creatinine 0.63 (0.52-1.04) mg/dL Estimated GFR > 60.0 ML/MIN Glucose 86 (74-106) mg/dL Calcium 9.5 (8.4-10.2) mg/dL Total Bilirubin 0.80 (0.2-1.3) mg/dL AST 28 (14-36) U/L ALT 18 (0-35) U/L Alkaline Phosphatase 88 (38-126) U/L Troponin I (0.000-0.034) ng/mL Serum Total Protein 8.4 H (6.3-8.2) g/dL Albumin 5.0 (3.5-5.0) g/dL Lipase 43 (23-300) U/L Urine Color (YELLOW) Urine Appearance (CLEAR) Urine pH (5-6) Ur Specific [place] (1.005-1.025) Urine Protein (Negative) Urine Ketones (NEGATIVE) Urine Blood (0-5) Cristino/ul Urine Nitrite (NEGATIVE) Urine Bilirubin (NEGATIVE) Urine Urobilinogen (0-1) mg/dL Ur Leukocyte Esterase (NEGATIVE) Urine WBC (Auto) (0-5) /HPF U Epithel Cells (Auto) (FEW) /HPF Urine Bacteria (Auto) (NEGATIVE) /HPF Urine Mucus (Auto) (NEGATIVE) /HPF Urine Culture Reflexed (NO) Urine Glucose (NEGATIVE) mg/dL Urine HCG, Qual (Negative) - Progress Progress: improved Progress Note: Patient reassessed. Pain resolved. Patient feels well she is sitting up on her cell phone. Patient did not receive any pain medication per her request. IV fluids infused. Patient states he is ready for discharge. CT abdomen pelvis negative for acute intra-abdominal pathology. There is a splenic cyst as well as small nonobstructing renal calculi. Patient agrees to follow-up with her primary care doctor within 48 hours for reevaluation. Portions of this note were created with voice recognition technology. There may be grammatical, spelling, punctuation or sound alike errors 06/14/21 20:55 Counseled pt/family regarding: lab results, diagnosis, need for follow-up, rad results - Departure Departure Disposition: Home Clinical Impression: Nephrolithiasis, Splenic cyst, Abdominal pain Condition: Stable Critical Care Time: No Referrals: KAELYN JACKSON MD [Primary Care Provider] - Follow up/PCP as directed Additional Instructions: Discharge/Care Plan GRISEL RAMIREZ was seen on 06/14/21 in the Emergency Room. The patient was counseled regarding Diagnosis,Lab results, Imaging studies, need for follow up and when to return to the Emergency Room. Prescriptions given: Discharge Note I have spoken with the patient and/or caregivers. I have explained the patient's condition, diagnosis and treatment plan based on the information available to me at this time. I have answered the patient's and/or caregiver's questions and addressed any concerns. The patient and/or caregivers have as good understanding of the patient's diagnosis, condition and treatment plan as can be expected at this point. The vital signs have been stable. The patient's condition is stable and appropriate for discharge from the emergency department. The patient will pursue further outpatient evaluation with the primary care physician or other designated or consulting physician as outlined in the discharge instructions. The patient and/or caregivers are agreeable to this plan of care and follow-up instructions have been explained in detail. The patient and/or caregivers have received these instruction. The patient/and or caregivers are aware that any significant change in condition or worsening of symptoms should prompt an immediate return to this or the closest emergency department or call 911.
[2021-06-14 21:04] VITALS: BP 128/69; PULSE 75
--- NOTE | 2021-06-15 08:38 | XRAY ---
Indication: Abdomen pain and diarrhea. Multiple contiguous axial images obtained through the abdomen and pelvis using 80 cc Isovue 370 contrast. Comparison: September 22, 2019. Lung bases again demonstrate right base calcified granuloma. No infiltrate or effusion. Heart is not enlarged. Noncontrasted stomach and bowel loops appear nonobstructed. Appendix not seen. No free fluid/air. 1 cm splenic cyst not seen on previous noncontrast exam. Left kidney demonstrates 3 nonobstructing punctate calculi. Remaining liver, gallbladder, pancreas, spleen, adrenal glands, kidneys, ureters, bladder, uterus, and aorta appear unremarkable. No pathologic retroperitoneal lymphadenopathy. Osseous structures intact. Impression: 1. Nonobstructing left renal micro-calculi and small splenic cyst. 2. Remaining CT abdomen/pelvis with contrast exam is negative.
== END 2021-06-14 21:12 | disposition home or self-care (01) ==
LOC: ED 16:23
DX: N20.0 Calculus of kidney (principal); Z87.442 Personal history of urinary calculi; D73.4 Cyst of spleen; R10.31 Right lower quadrant pain; R11.2 Nausea with vomiting, unspecified; R19.7 Diarrhea, unspecified
CPT/HCPCS: 36000; 36415; 74177; 80053; 81001; 83690; 84484; 84703; 85025; 96360; 99284